=== PATIENT | male | born 1945 | race Caucasian/White ===

== ENCOUNTER 2024-05-21 06:26 | Day surgery (SDC) | payer MEDICARE ==
[~2024-05-21] VITALS: Ht 177.8 cm; Wt 92.1 kg
[2024-05-21] VITALS (10 sets, daily range): BP systolic 123–145; BP diastolic 57–65; PULSE 41–49; RESP 12–20; TEMP 97.6; O2SAT 94–96
[2024-05-21] MEDS ORDERED: METO-395 PO (07:08)
[2024-05-21] MEDS ORDERED: ASPI-1265 PO (07:08)
[2024-05-21] MEDS ORDERED: OXYB10TA30 PO (07:08)
[2024-05-21] MEDS ORDERED: APIX5TAB3 PO (07:08)
[2024-05-21] MEDS ORDERED: LOSA50TA64 PO (07:08)
[2024-05-21] MEDS ORDERED: OMEG-133 PO (07:08)
[2024-05-21] MEDS ORDERED: HYDR12.55 PO (07:08)
[2024-05-21] MEDS ORDERED: FLO0.4C (07:08)
[2024-05-21] MEDS ORDERED: SIMV-45 PO (07:08)
[2024-05-21 07:17] LABS: BASOPHILS % (AUTO) 0.7 % (0-1); EOSINOPHILS # (AUTO) 0.1 X10'3 (0-0.9); EOSINOPHILS % (AUTO) 2.2 % (0-6); HEMATOCRIT 41.4 % (42.0-52.0); HEMOGLOBIN 13.8 g/dl (14.0-17.9); LYMPHOCYTES # (AUTO) 1.8 X10'3 (1.1-4.8); LYMPHOCYTES % (AUTO) 28.7 % (21-51); MEAN CORPUSCULAR HEMOGLOBIN 31.9 PG (27.0-31.0); MEAN CORPUSCULAR HGB CONC 33.3 g/dL (33.0-36.5); MEAN CORPUSCULAR VOLUME 95.6 FL (78-98); MEAN PLATELET VOLUME 7.6 FL (7.4-10.4); MONOCYTES # (AUTO) 0.6 X10'3 (0-0.9); NEUTROPHILS # (AUTO) 3.7 X10'3 (1.8-7.7); NEUTROPHILS % (AUTO) 58.4 % (42-75); PLATELET COUNT 186 X10'3 (140-440); RED BLOOD COUNT 4.33 X10'6 (4.70-6.10); RED CELL DISTRIBUTION WIDTH 14.4 % (11.5-14.5); WHITE BLOOD COUNT 6.3 X10'3 (4.5-11.0)
[2024-05-21 07:27] LABS: ALBUMIN 3.8 G/DL (3.4-5.0); ANION GAP 8 (8-16); BLOOD UREA NITROGEN 17 MG/DL (7-18); CALCIUM 9.6 MG/DL (8.5-10.1); CHLORIDE 107 MMOL/L (99-107); CREATININE 1.31 MG/DL (0.60-1.10); GLUCOSE 110 MG/DL (70-104); MAGNESIUM 2.1 MG/DL (1.5-2.4); POTASSIUM 3.9 MMOL/L (3.5-5.1); SODIUM 142 MMOL/L (135-145); TOTAL CARBON DIOXIDE 26.6 MMOL/L (24-32); eCRCL 48 ML/MIN; eGFR 53 ML/MIN
[2024-05-21 07:28] LABS: PROTHROMBIN TIME 10.4 SECONDS (9.0-12.0)
[2024-05-21] MEDS: normal saline 1,000 ML IV SCH (08:08)
[2024-05-21] MEDS: diphenhydrAMINE 25mg capsule PO PRN (08:09)
[2024-05-21] MEDS: sodium bicarbonate 1meq/ml syr 150 ML in dextrose 5%-water 1,000 ML IV SCH (08:11)
[2024-05-21] MEDS ORDERED: iohexol 350MG/ML 100ml bottle IV ONE (08:50)
[2024-05-21] MEDS ORDERED: heparin 1,000unit/ml 10ml vial 0 ML ONE (08:50)
[2024-05-21] MEDS ORDERED: fentaNYL/PF 50MCG/1 ML 2ML syringe ONE ×2 (08:50→10:13)
[2024-05-21] MEDS ORDERED: verapamil 2.5 mg/ml inj IV ONE ×2 (08:50→10:05)
[2024-05-21] MEDS ORDERED: LIDOcaine 1% (10mg/ml) 2ml vial ONE (08:50)
[2024-05-21] MEDS ORDERED: midazolam 1 mg/ML 2ml injection ONE ×2 (08:50→09:41)
[2024-05-21] MEDS ORDERED: nitroGLYCERIN 500mcg/5mL D5W 5 ML IV ONE (08:51)
[2024-05-21] MEDS ORDERED: iohexol 350 MG/ML 50ML vial IV ONE (09:03)
[2024-05-21] MEDS ORDERED: LIDOcaine 1% 30ml preserv. free vial ONE (09:06)
[2024-05-21] MEDS ORDERED: HYDROmorphone 1 mg/ml syringe ONE (09:45)
[2024-05-21] MEDS ORDERED: heparin 1,000unit/ml 10ml vial 10 ML ONE (10:05)
[2024-05-21] MEDS ORDERED: ondansetron/PF 4mg/2ml inj IV PRN (11:10)
[2024-05-21] MEDS ORDERED: HYDROcodone/acetaminophen 10/325mg tab PO PRN (11:15)
[2024-05-21] MEDS ORDERED: proCHLORperazine 10 MG/2 ml inj IV PRN (11:15)
[2024-05-21] MEDS ORDERED: HYDROcodone/acetaminophen 5mg/325mg tablet PO PRN (11:15)
== END 2024-05-21 13:43 | disposition home or self-care (01) ==
LOC: SSTAY O 06:26
PROVIDERS: ATTEND Internal Medicine Cardiovascular Disease
DX: I25.118 Atherosclerotic heart disease of native coronary artery with other forms of angina pectoris (principal); I25.718 Atherosclerosis of autologous vein coronary artery bypass graft(s) with other forms of angina pectoris; I42.9 Cardiomyopathy, unspecified; E78.5 Hyperlipidemia, unspecified; I82.503 Chronic embolism and thrombosis of unspecified deep veins of lower extremity, bilateral; I10 Essential (primary) hypertension; Z79.899 Other long term (current) drug therapy; Z98.890 Other specified postprocedural states
CPT/HCPCS: 36415; 80048; 83735; 85025; 85610; 93005; 93459; 99152; 99153; A6258; A6402; C1725; C1760; C1769; C1894; J1170; J1644; J2001; J2250; J3010; J3490; J7030; J7070; Q0163; Q9967; Z7610